=== PATIENT | female | born 1980 | race African-American/Black ===

== ENCOUNTER 2023-09-21 02:26 | Emergency (ER) | payer BC, OTHER ==
[~2023-09-21] VITALS: Ht 172.7 cm; Wt 74.8 kg
[2023-09-21 03:55] VITALS: BP 130/82; TEMP 98.2; O2SAT 98
== END 2023-09-21 03:55 | disposition home or self-care (01) ==
LOC: ER 02:27
DX: M25.572 Pain in left ankle and joints of left foot (principal); J45.909 Unspecified asthma, uncomplicated; Z88.8 Allergy status to other drugs, medicaments and biological substances; Z91.013 Allergy to seafood
CPT/HCPCS: 73610; A4606; A4663